=== PATIENT | male | born 1955 | race Caucasian/White ===

== ENCOUNTER 2019-04-01 13:33 | Outpatient (CLI) | payer BC ==
--- NOTE | 2019-04-01 15:06 | RAD ---
RIGHT HIP TWO VIEWS: 04/01/19 HISTORY: Right hip pain. FINDINGS/IMPRESSION: Degenerative changes are present. No fracture or dislocation or bony destruction identified. POS: [facility]
== END 2019-04-01 13:34 | disposition home or self-care (01) ==
LOC: BICRAD 13:33
PROVIDERS: ATTEND Family Medicine
DX: M25.551 Pain in right hip (principal); M16.11 Unilateral primary osteoarthritis, right hip